=== PATIENT | female | born 1945 | race Caucasian/White ===

== ENCOUNTER 2018-04-05 14:51 | Emergency (ER) | payer OTHER ==
[2018-04-05] MEDS ORDERED: NS 1,000 ML IV ONE (14:53)
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
[2018-04-05] MEDS ORDERED: TDAP ADULT 0.5 ML INJ (BOOSTRIX) IM ONE (15:19)
[2018-04-05 15:29] LABS: PROTIME(PATIENT) 13.4 SEC (12.0-15.0)
[2018-04-05 15:33] VITALS: BP 148/88
[2018-04-05 15:34] LABS: PLATELET COUNT 173 10^3/uL (150-400)
[2018-04-05 15:40] LABS: CREATINE KINASE 56 IU/L (0-156)
== END 2018-04-05 15:47 | disposition short-term general hospital (02) ==
LOC: EDUNIT#
DX: T24.211A Burn of second degree of right thigh, initial encounter (principal); T24.231A Burn of second degree of right lower leg, initial encounter; T31.0 Burns involving less than 10% of body surface; Z86.73 Personal history of transient ischemic attack (TIA), and cerebral infarction without residual deficits; X11.8XXA Contact with other hot tap-water, initial encounter; Y99.8 Other external cause status; Y93.89 Activity, other specified

== ENCOUNTER → 2018-06-16 | Outpatient (CLI) | payer OTHER | LOC: FIMAGING 09:23 | DX: Z12.31 Encounter for screening mammogram for malignant neoplasm of breast (principal); Z80.3 Family history of malignant neoplasm of breast ==

== ENCOUNTER 2018-07-14 16:08 | Inpatient (IN) | payer OTHER ==
[2018-07-14] MEDS ORDERED: VANCOMYCIN HCL/NORMAL SALINE 250 ML IV ONE (16:57)
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
[2018-07-14 17:28] LABS: PLATELET COUNT 157 10^3/uL (150-400)
[2018-07-14 17:35] LABS: INR 1.03 (0.83-1.16); PROTIME(PATIENT) 13.7 SEC (12.0-15.0)
[2018-07-14] MEDS ORDERED: ACETAMINOPHEN 325 MG TAB PO PRN (18:08)
[2018-07-14] MEDS ORDERED: ONDANSETRON DISINTEGRATING 4 MG TAB PO PRN ×2 (18:08→18:51)
[2018-07-14] MEDS ORDERED: ONDANSETRON 4 MG/2 ML VIAL IVP PRN ×2 (18:08→18:51)
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
[2018-07-15] MEDS ORDERED: NAPROXEN SODIUM 220 MG TAB PO PRN (16:34)
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
[2018-07-16] MEDS ORDERED: Herbals/Supplements -Info Only PO SCH (09:00)
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
--- NOTE | 2018-07-17 16:16 | ASMTCMCOM ---
CM Note CM Note Notes: Met with pt, she has expressive aphasia so asking questions with yes/no answers works best. PT recommends homecare, she would like a referral to go to [facility], she has used them in the past. She needs a few more days of IV abx, she knows she will be here until Friday. [facility] unable to accept pt due to staffing issues, discussed with pt, she declines homecare at this time. She has a caregiver Diya who comes on for 5 hrs. also left for Brigid, her speech therapist per pt's request. She has an appt Friday and may not be able to make it. DC Plan: Home vs home care Date Signed: 07/17/2018 04:00 PM Electronically Signed By:Mandy Christopher RN
[2018-07-18] MEDS ORDERED: VANCOMYCIN 750 MG in D5W 150 ML IV SCH (10:30)
[2018-07-18] MEDS ORDERED: ALTEPLASE 2 MG VIAL IVP PRN (12:46)
[2018-07-18] MEDS ORDERED: IOPAMIDOL (ISOVUE-300) 100 ML BTL ONE (15:33)
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
[2018-07-18] MEDS: VANCOMYCIN 1 GM in NS 250 ML IV SCH (21:57)
[2018-07-19 05:56] LABS: PLATELET COUNT 197 10^3/uL (150-400)
[2018-07-19] MEDS: VANCOMYCIN 1 GM in NS 250 ML IV SCH (09:45)
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
--- NOTE | 2018-07-19 15:04 | ASMTCMCOM ---
CM Note CM Note Notes: Call to CM to notify us speech therapy appointment has been canceled CM to follow. Picc placed IV antibiotics changed to Vanco. Plan: TBD Date Signed: 07/19/2018 03:02 PM Electronically Signed By:Renata Frank RN
[2018-07-19 15:26] VITALS: BP 131/62
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
--- NOTE | 2018-07-19 16:49 | PDIAF ---
- Diagnosis Code Status: Do Not Resuscitate - Medication Management Discharge Medications: Medications to Continue on Transfer Herbals/Supplements -Info Only 1 ea PO DAILY 07/14/18 [Last Taken Unknown] Naproxen Sodium [Aleve 220 MG (*)] 220 mg PO BID PRN 07/14/18 [Last Taken Unknown] Cephalexin [Keflex (*)] 500 mg PO Q6HRS #28 cap 07/19/18 [Last Taken Unknown] Discharge Medications: Refer to the Discharge Home Medication list for PRN reason. - Orders Services needed: Home Care, Registered Nurse Home Care Face to Face: I certify that this patient was under my care and that I had the required [id number] encounter meeting the encounter requirements on the discharge day. My findings support the fact that the patient is homebound as defined in Home Care Face to Face Continued: CMS Chapter 7 Medicare Benefits Manual 30.1.1 , The condition of the patient is such that there exists a normal inability to leave home and consequently, leaving home would require a considerable and taxing effort. - Follow Up Care Current Providers and Referrals: DONAVAN LOPEZ [Other] - As per Instructions
--- NOTE | 2018-07-19 17:01 | ASMTCMCOM ---
CM Note CM Note Notes: Call from RN that patient likely to dc and in need of support. Met with patient who is extremely aphasic. She is agreeable to [facility]. She needs a RN, SP and PT. I have requested [facility]. She has a friend that can pick her up. RN to call [phone] for report. Plan: Home with [facility]. Date Signed: 07/19/2018 05:00 PM Electronically Signed By:Renata Frank RN
--- NOTE | 2018-07-19 17:02 | ASMTLACE ---
LACE Length of stay for Answers: 4-6 days current admission Comorbidities - select Answers: Cerebrovascular disease all that apply (CVA, TIA, aneurysms, vasc ular dementia) # of Emergency department Answers: 1-2 visits in the last 6 months Score: 6 Date Signed: 07/19/2018 05:01 PM Electronically Signed By:Renata Frank RN
[2018-07-19] MEDS ORDERED: CEPHALEXIN 500 MG CAP PO SCH (18:00)
== END 2018-07-19 18:18 | disposition home or self-care (01) | DRG 603 ==
LOC: F3E 18:08 → OBSVTOIN 07-15 16:42
PROVIDERS: ADMIT Family Medicine; ATTEND Family Medicine
PROC: 02HV33Z Insertion of Infusion Device into Superior Vena Cava, Percutaneous Approach (ICD-10-PCS; principal; 2018-07-18)
DX: L03.115 Cellulitis of right lower limb (principal); I69.320 Aphasia following cerebral infarction; I69.351 Hemiplegia and hemiparesis following cerebral infarction affecting right dominant side; Z87.828 Personal history of other (healed) physical injury and trauma; Z66 Do not resuscitate
CPT/HCPCS: 96365; 97116-GP; 97162-GP; C1751; G0378; G8978-GP-CJ; G8979-GP-CI; J0690; J3370; Q9967

== ENCOUNTER 2018-07-24 11:00 | Emergency (ER) | payer OTHER ==
--- NOTE | 2018-07-24 11:08 | EDPHY ---
General - History Smoking Status: Never smoked Time Seen by Provider: 07/24/18 11:04 Narrative: CHIEF COMPLAINT: HISTORY OF PRESENT ILLNESS: Patient presents by private vehicle with complaints of staple bothering her in her right lower extremity skin graft. Skin graft has been present for several months. She reports that she can feel the staple and is bothering her. Difficult to obtain details from the patient as she had a recent CVA and has residual difficulty with her thought and speaking. She states that it is painful. She denies any other associated complaints or modifying factors. REVIEW OF SYSTEMS: 10 systems were reviewed and negative with the exception of the elements mentioned in the history of present illness. SPECIALISTS: [facility] PAST MEDICAL HISTORY: CVA, skin graft PAST SURGICAL HISTORY: Skin graft earlier this year SOCIAL HISTORY: Nonsmoker. Lives locally with family FAMILY HISTORY: Noncontributory EXAMINATION: General Appearance: Alert, no distress. Well appearing. Ambulatory with a cane. Head: normocephalic, atraumatic Eyes: Pupils equal and round, no conjunctival pallor or injection Cardiovascular: Regular rate with good signs of perfusion. Skin: Warm and dry, no rash. Extensive skin graft changes to the right lower extremity that are well established. There is no signs of infection, dehiscence or any surrounding infection. There is a small area of staple extruding from the most distal and medial portion of the skin graft near the heel. No bleeding. No surrounding purulence, irritation or infection. Extremities: Nontender, no pedal edema Psychiatric: Mood and affect normal DIFFERENTIAL DIAGNOSES: Including but not limited to foreign body, skin irritation MDM: 11:05 a.m. Stable protruding through a very established right lower extremity skin graft. She has no complaints other than asking for the stable to be removed. No signs of infection or breakdown. 11:30 a.m. Staple as easily been removed from the right medial foot. No difficulty. Tolerated well. Dressing placed. Follow up with wound care. She is comfortable this plan and discharged home stable condition. PROCEDURE: Foreign Body Removal Consent: Verbal Location: Right medial foot Anesthesia: Local. 0.5% Marcaine without epinephrine, 3 mL Procedure description: Following good anesthesia and time-out, the area of staple was removed using pickups and needle drivers without difficulty. No bleeding. Tolerated well without complication. SUPERVISION: This patient was independently evaluated without direct involvement of or examination by the attending physician. CONSULTATION: None (Aleksandr Moreira) Medical Decision Making: PHYSICIAN DOCUMENTATION: The patient was evaluated and managed by the Physician Gang Supervisor. My co- signature indicates that I have reviewed this chart and I agree with the findings and plan of care as documented. I am the secondary supervising physician. (Rodolfo Casas) - Objective Vital Signs: Initial Vital Signs Temperature (C) 98.1 F 07/24/18 11:09 Heart Rate 80 07/24/18 11:09 Respiratory Rate 16 07/24/18 11:09 Blood Pressure 136/96 H 07/24/18 11:09 O2 Sat (%) 94 07/24/18 11:09 O2 Delivery Mode Room Air Allergies/Adverse Reactions: No Known Allergies Allergy (Verified 07/14/18 16:23) Home Medications: Medication Instructions Recorded Herbals/Supplements -Info Only 1 ea PO DAILY 07/14/18 Naproxen Sodium [Aleve 220 MG (*)] 220 mg PO BID PRN 07/14/18 Cephalexin [Keflex (*)] 500 mg PO Q6HRS #28 cap 07/19/18 Departure - Departure Disposition: Home, Routine, Self-Care Clinical Impression: Removal of staple Condition: Good Instructions: Staple Care (ED) Additional Instructions: 1. Follow up with primary care physician and wound care center for definitive care 2. Return here for any signs of infection as discussed including redness, warmth , fever pain Referrals: JESSICA,DONAVAN [Other] - As per Instructions [facility] [Clinic] - As per Instructions
[2018-07-24 11:53] VITALS: BP 138/79
== END 2018-07-24 11:51 | disposition home or self-care (01) ==
DX: Z48.02 Encounter for removal of sutures (principal)